=== PATIENT | female | born 1955 | race Caucasian/White ===

== ENCOUNTER → 2017-02-05 | Outpatient (CLI) | payer OTHER ==
--- NOTE | ~2017-02-05 | CR141 ---
[facility] [place]. [facility] A Service of [facility] & [facility] RADIOLOGY TEXT RESULTS PATIENT: SHADE LIVE LOCATION: [facility] : 53 UNIT #: [id number] AGE: [address]: Foster Bolanos MD SEX: F ORDER DR: [id number] [place] [id number] O MR#: [id number] Acc #: [id number] NAME: SHADE LIVE : 1955 SEX: F STUDY DATE/TIME: 02/05/2017 9:16 UNIT: [facility] ROOM: STUDY DESCRIPTION: CR Hand Min 3 Views Lt Attending Physician: Foster Bolanos M.D. Referring Physician: Foster Bolanos M.D. Ordering Physician: Foster Bolanos M.D. Primary Care Physician: Foster Bolanos M.D. MEDICAL IMAGING REPORT This report is preliminary unless electronic signature is present. EXAM Left hand 3 views, 02/05/2017 HISTORY Left hand pain, joint pain and swelling bilaterally for 3 years worsening in the last 2 months, numbness and tingling in left hand. FINDINGS AP, lateral, and oblique projections of the hand show good mineralization with normal carpal, metacarpal, and phalangeal anatomy without indication of fracture, dislocation, or soft tissue radiopaque foreign body. IMPRESSION Normal hand. x Dictated by... Bari Oliver M.D. THIS IS AN ELECTRONICALLY VERIFIED REPORT Bari Oliver M.D. at 02/06/2017 8:05 AM FAITH/grant TD: 02/05/2017 21:22 JOB #: [id number] MEDICAL IMAGING REPORT Page 1 of 1
--- NOTE | ~2017-02-05 | CR142 ---
[facility]. [facility] A Service of [facility] & [facility] RADIOLOGY TEXT RESULTS PATIENT: SHADE LIVE LOCATION: [facility] : 53 UNIT #: [id number] AGE: [address]: Foster Bolanos MD SEX: F ORDER DR: [id number] [place] [id number] O MR#: [id number] Acc #: [id number] NAME: SHADE LIVE : 1955 SEX: F STUDY DATE/TIME: 02/05/2017 9:16 UNIT: [facility] ROOM: STUDY DESCRIPTION: CR Hand Min 3 Views Rt Attending Physician: Foster Bolanos M.D. Referring Physician: Foster Bolanos M.D. Ordering Physician: Foster Bolanos M.D. Primary Care Physician: Foster Bolanos M.D. MEDICAL IMAGING REPORT This report is preliminary unless electronic signature is present. EXAM Right hand, 3 views, 02/05/2017. HISTORY Right hand pain, joint pain and swelling for 3 years worsening in the last few months with numbness and tingling right hand. FINDINGS Three views of the right hand demonstrate no fracture. There is degenerative change with osteophytic spurring about the first interphalangeal joint and the third distal interphalangeal joint. The bones are normally mineralized. There is no soft tissue abnormality. IMPRESSION Degenerative change about the right hand. No acute abnormality. Dictated by... Bari Oliver M.D. THIS IS AN ELECTRONICALLY VERIFIED REPORT Bari Oliver M.D. at 02/06/2017 8:05 AM KRT/roddy TD: 02/05/2017 21:28 JOB #: [id number] MEDICAL IMAGING REPORT Page 1 of 1
== END | disposition home or self-care (01) ==
LOC: SRAD 09:11
DX: M25.541 Pain in joints of right hand (principal); M25.542 Pain in joints of left hand; M79.89 Other specified soft tissue disorders
CPT/HCPCS: 73130